=== PATIENT | female | born 1940 | race Caucasian/White ===

== ENCOUNTER 2021-05-05 10:41 | Emergency (ER) | payer OTHER, MEDICARE ==
[~2021-05-05] VITALS: Ht 172.7 cm; Wt 81.7 kg
[2021-05-05] MEDS ORDERED: LIDO700A20 TOP (12:08)
== END 2021-05-05 12:20 | disposition home or self-care (01) ==
LOC: ER 10:41
DX: S16.1XXA Strain of muscle, fascia and tendon at neck level, initial encounter (principal); S39.012A Strain of muscle, fascia and tendon of lower back, initial encounter; Z88.8 Allergy status to other drugs, medicaments and biological substances; V49.40XA Driver injured in collision with unspecified motor vehicles in traffic accident, initial encounter; Y92.410 Unspecified street and highway as the place of occurrence of the external cause
CPT/HCPCS: 99283; A9270